=== PATIENT | female | born 1945 | race Caucasian/White ===

== ENCOUNTER → 2023-04-07 | Emergency (ER) | payer OTHER, MEDICARE ==
[~2023-04-07] MED LIST: CEFTRIAXONE 1000 MG/VIAL ONE; KETOROLAC 30 MG/ML INJ ONE; TAMSULOSIN 0.4 MG SR CAP ONE
[2023-04-07 22:15] LABS: Absolute Lymphocytes (CBC) 1.5 K/uL (0.7-4.9); Lymphocytes % 14.1 % (15.3-44.8); MCV 91.5 fL (80-100); Platelets 240 thou/uL (152-406); RBC Red Blood Cell Count 4.49 M/uL (3.86-4.86)
[2023-04-07 22:16] LABS: Calcium Oxalate Crystals- Ur Moderate /HPF (None Seen); Specific Gravity 1.022 (1.005-1.030); Urine Bacteria <20 /HPF (<20); Urine Bilirubin NEGATIVE (Negative); Urine Blood 2+ (Negative); Urine Clarity Extremely Turbid (Clear); Urine Color Light-Yellow (Yellow); Urine Glucose NEGATIVE (Negative); Urine Mucus Slight /HPF (None Seen); Urine Protein NEGATIVE (Negative); Urine RBC 21-50 /HPF (None Seen); Urine Urobilinogen Normal (Normal); Urine pH 5.5 (5.0-7.0)
[2023-04-07 22:32] LABS: Albumin 3.6 g/dL (3.4-5.0); Bilirubin Total 0.2 mg/dL (0.2-1.0); Potassium 3.9 mEq/L (3.5-5.1); Protein, Total 7.4 g/dL (6.4-8.2)
--- NOTE | 2023-04-07 23:10 | RAD REPORT ---
EXAM DESCRIPTION: CTAbdomen Pelvis W Contrast - 04/07/2023 11:00 pm CLINICAL HISTORY: Abd pain;Flank pain COMPARISON: No comparisons TECHNIQUE: CT of the abdomen and pelvis was performed with IV contrast. All CT scans are performed using dose optimization technique as appropriate and may include automated exposure control or mA/KV adjustment according to patient size. FINDINGS: Lower chest: No acute abnormality. Liver: High attenuation lesion in the right hepatic lobe measuring 13 millimeters is probably a flash fill hemangioma. Biliary: Cholelithiasis without CT evidence of acute cholecystitis. Stomach: No significant focal abnormality. Duodenum: No significant focal abnormality. Pancreas: No significant abnormality. Spleen: No significant abnormality. Adrenal: No suspicious lesions. Kidney/ureter: Mild left-sided hydroureteronephrosis secondary to a 3 mm stone at the left UVJ. Retroperitoneum: No retroperitoneal adenopathy. Vascular: No aneurysm. Bowel: No significant focal abnormality. No appendicitis. Peritoneum: No ascites or free air. Bladder: Grossly unremarkable. Reproductive: Small calcified uterine fibroid. Bones: No acute fracture. Multilevel degenerative changes are present in the spine. Other: n/a IMPRESSION: 1. Mild left-sided hydroureteronephrosis secondary to a 3 mm stone at the left UVJ. 2. Cholelithiasis without CT evidence acute cholecystitis. 3. High attenuation lesion in the right hepatic lobe likely a flash fill hemangioma. If the patient h as significant risk factors for hepatocellular carcinoma or personal history of malignancy, recommend hepatic protocol MRI or CT to confirm. If no significant risk factors, suggest nonemergent ultrasoun d to further evaluate.
--- NOTE | 2023-04-07 23:23 | EDPHYS ---
Physician Documentation [facility] Name: Jesi Mraroquin Age: 77 yrs Sex: Female : 1945 Arrival Date: 04/07/2023 Time: 21:13 Bed 14 Private MD: ED Physician Ilia Hawkins HPI: 04/07 23:57 This 77 yrs old Female presents to ER via Ambulatory with complaints of Possible Kidney sb4 Stone. 23:57 The patient complains of pain in the left low back. The pain radiates to the left lower sb4 quadrant. Onset: The symptoms/episode began/occurred just prior to arrival. Associated signs and symptoms: Pertinent positives: dysuria. Severity of pain: At its worst the pain was severe in the emergency department the pain has improved moderately. The patient has experienced a previous episode, approximately 6 years ago, and the symptoms today are exactly the same. The patient has been recently seen at an urgent care, just prior to arrival. sudden left sided flank pain right after eating dinner. thought she was constipated and took 2 ex lax. went to urgent care and was sent here for CT eval for kidney stone. Historical: - Allergies: 21:28 Cipro; cm10 21:28 Myocidin; cm10 - PMHx: 21:28 Kidney stone; Mitral Valve prolapse; Breast Cancer; cm10 - Immunization history:: Adult Immunizations unknown. - Social history:: Smoking status: Patient denies any tobacco usage or history of. ROS: 23:57 Constitutional: Negative for fever, chills, and weight loss, sb4 23:57 Back: Positive for flank pain, on the left, 23:57 : Positive for urinary symptoms, 23:57 All other systems are negative, Exam: 23:57 Constitutional: This is a well developed, well nourished patient who is awake, alert, sb4 and in no acute distress. Head/Face: Normocephalic, atraumatic. Eyes: Extra-ocular motions intact. Periorbital areas with no swelling, redness, or edema. ENT: Mucous membranes moist. Cardiovascular: Regular rate and rhythm with a normal S1 and S2. Respiratory: Lungs have equal breath sounds bilaterally, clear to auscultation and percussion. No rales, rhonchi or wheezes noted. No increased work of breathing, no retractions or nasal flaring. Abdomen/GI: Soft, non-tender, no distension. Skin: Warm, dry with normal turgor. Normal color with no rashes, no lesions, and no evidence of cellulitis. MS/ Extremity: Pulses equal, no cyanosis. Neurovascular intact. Full, normal range of motion. Neuro: Awake and alert, GCS 15, oriented to person, place, time, and situation. Motor strength 5/5 in all extremities. Sensory grossly intact. 23:57 Back: CVA tenderness, that is moderate, is noted on the left, Vital Signs: 21:26 BP 93 / 75; Pulse 90; Resp 16; Temp 97.7; Pulse Ox 100% on R/A; Weight 86.18 kg; Height cm10 5 ft. 5 in. ; Pain 8/10; 22:00 BP 136 / 84; Pulse 79; Resp 16; Pulse Ox 98% on R/A; pf1 23:00 BP 129 / 80; Pulse 80; Resp 16; Pulse Ox 98% on R/A; pf1 04/08 00:00 BP 136 / 92; Pulse 77; Resp 16; Pulse Ox 100% on R/A; pf1 04/07 21:26 Body Mass Index 31.62 (86.18 kg, 165.1 cm) cm10 04/07 21:26 Pain Scale: Adult cm10 MDM: 04/07 21:31 Patient medically screened. [facility] 23:57 Differential diagnosis: nephrolithiasis, pyelonephritis, UTI. Data reviewed: vital sb4 signs, nurses notes, lab test result(s), radiologic studies, and as a result, I will discharge patient. Historians other than the Patient: Spouse/Significant Other: . Counseling: I had a detailed discussion with the patient and/or guardian regarding the historical points, exam findings, and any diagnostic results supporting the discharge/admit diagnosis, lab results, radiology results, to return to the emergency department if symptoms worsen or persist or if there are any questions or concerns that arise at home. 04/07 21:52 Order name: CBC with Diff; Complete Time: 22:21 sb4 04/07 21:52 Order name: CMP; Complete Time: 22:33 sb4 04/07 21:52 Order name: Lipase; Complete Time: 22:33 sb4 04/07 21:52 Order name: Urinalysis w/ reflexes; Complete Time: 22:19 sb4 04/07 22:20 Order name: Urine Culture EDNH 04/07 21:52 Order name: CT Abd/Pelvis - IV Contrast Only; Complete Time: 23:11 sb4 04/07 21:52 Order name: IV Saline Lock; Complete Time: 22:06 sb4 04/07 21:52 Order name: Labs collected and sent; Complete Time: 22:06 sb4 Administered Medications: 23:40 Drug: Ketorolac IVP 30 mg IVP once Route: IVP; Site: right antecubital; pf1 04/08 00:00 Follow up: Response: No adverse reaction; Marked relief of symptoms; Pain is decreased; pf1 RASS: Alert and Calm (0) 04/07 23:40 Drug: Flomax PO 0.4 mg PO once Route: PO; pf1 04/08 00:00 Follow up: Response: No adverse reaction pf1 04/07 23:40 Drug: Rocephin IV 1 grams IV at calculated rate once; Given slow IV push per pharmacy pf1 instructions Route: IV; Rate: calculated rate; Site: right antecubital; 04/08 02:15 Follow up: Response: No adverse reaction; Marked relief of symptoms; IV Status: pf1 Completed infusion Disposition Summary: 04/07/23 23:22 Discharge Ordered Notes: Location: Home sb4 Problem: new sb4 Symptoms: have improved sb4 Condition: Stable sb4 Diagnosis - Calculus of kidney with calculus of ureter sb4 - UTI/ Urinary tract infection, site not specified sb4 Followup: sb4 - With: Emergency Department - When: As needed - Reason: Trouble breathing, Worsening of condition Discharge Instructions: - Discharge Summary Sheet sb4 - Kidney Stones sb4 - Urinary Tract Infection, Adult, [id number] sb4 Forms: - Medication Reconciliation Form sb4 - Thank You Letter sb4 - Antibiotic Education sb4 - Prescription Opioid Use sb4 - Patient Portal Instructions sb4 - Leadership Thank You Letter sb4 Prescriptions: - ketorolac 10 mg Oral tablet - take 1 tablet ORAL route every 4 to 6 hours for 3 days as needed for pain; do sb4 not exceed 4 doses per 24 hrs; 12 tablet; Refills: 0, Product Selection Permitted - tamsulosin 0.4 mg Oral capsule - take 1 capsule ORAL route every day at bedtime; 30 capsule; Refills: 0, Product sb4 Selection Permitted - cefpodoxime 100 mg Oral Tablet - take 1 tablet ORAL route every 12 hours for 10 days take with food; 20 tablet; sb4 Refills: 0, Product Selection Permitted Signatures: Dispatcher [employer] Ilia Coello MD MD cha Brown, Sophia, PA-C PA-C sb4 Velvet Leal RN RN pf1 Maegan Worley RN RN cm10
--- NOTE | 2023-04-07 23:23 | ER ---
Nurse's Notes [facility] Name: Jesi Marroquin Age: 77 yrs Sex: Female : 1945 Arrival Date: 04/07/2023 Time: 21:13 Bed 14 Private MD: Diagnosis: Calculus of kidney with calculus of ureter;UTI/ Urinary tract infection, site not specified Presentation: 04/07 21:26 Chief complaint: Patient states: Left flank pain that radiates to her LLQ onset tonight cm10 after eating dinner. Pt states that she has vomited twice and the pain has improved. Coronavirus screen: Vaccine status: Patient reports being unvaccinated. Client denies travel out of the [place] in the last 14 days. Ebola Screen: Patient denies travel to an Ebola-affected area in the 21 days before illness onset. No symptoms or risks identified at this time. Initial Sepsis Screen: Does the patient meet any 2 criteria? No. Patient's initial sepsis screen is negative. Does the patient have a suspected source of infection? No. Patient's initial sepsis screen is negative. Risk Assessment: Do you want to hurt yourself or someone else? Patient reports no desire to harm self or others. Onset of symptoms was April 07, 2023. 21:26 Method Of Arrival: Ambulatory cm10 21:26 Acuity: PATT 3 cm10 Historical: - Allergies: 21:28 Cipro; cm10 21:28 Myocidin; cm10 - PMHx: 21:28 Kidney stone; Mitral Valve prolapse; Breast Cancer; cm10 - Immunization history:: Adult Immunizations unknown. - Social history:: Smoking status: Patient denies any tobacco usage or history of. Screenin:09 [facility] ED Fall Risk Assessment (Adult) History of falling in the last 3 months, pf1 including since admission No falls in past 3 months (0 pts) Confusion or Disorientation No (0 pts) Intoxicated or Sedated No (0 pts) Impaired Gait No (0 pts) Mobility Assist Device Used No (0 pt) Altered Elimination No (0 pt) Score/Fall Risk Level 0 - 2 = Low Risk Oriented to surroundings, Maintained a safe environment, Educated pt \T\ family on fall prevention, incl call for assistance when getting out of bed, Assessed \T\ reinforced patient's understanding of fall precautions, Provided non-skid footwear, Hourly rounding (assess needs \T\ fall precautionary measures) done, Used ambulatory aids as needed (educated on \T\ assisted with), Used gait belt as appropriate. Abuse screen: Denies threats or abuse. Nutritional screening: No deficits noted. Tuberculosis screening: No symptoms or risk factors identified. Assessment: 21:40 General: Appears in no apparent distress. comfortable, well groomed, well developed, pf1 Behavior is calm, cooperative, appropriate for age, quiet. 21:40 Pain: Complains of pain in back and abdomen Pain currently is 3 out of 10 on a pain pf1 scale. Neuro: No deficits noted. Level of Consciousness is awake, alert, obeys commands, Oriented to person, place, time, situation. Cardiovascular: No deficits noted. Capillary refill < 3 seconds Patient's skin is warm and dry. Respiratory: No deficits noted. Airway is patent Respiratory effort is even, unlabored, Respiratory pattern is regular, symmetrical. GI: Abdomen is round non-distended, Bowel sounds present X 4 quads. Abd is soft and non tender X 4 quads. Reports upper abdominal pain, nausea, vomiting. : No deficits noted. No signs and/or symptoms were reported regarding the genitourinary system. Reports patient stated was treated for UTI approximately 3 weeks ago, just completed antibiotics 1 week ago Tuesday. EENT: No deficits noted. No signs and/or symptoms were reported regarding the EENT system. 22:30 Reassessment: Patient appears in no apparent distress at this time. Patient and/or pf1 family updated on plan of care and expected duration. Pain level reassessed. Patient is alert, oriented x 3, equal unlabored respirations, skin warm/dry/pink. 23:14 Reassessment: Patient appears in no apparent distress at this time. Patient and/or pf1 family updated on plan of care and expected duration. Pain level reassessed. Patient is alert, oriented x 3, equal unlabored respirations, skin warm/dry/pink. Vital Signs: 21:26 BP 93 / 75; Pulse 90; Resp 16; Temp 97.7; Pulse Ox 100% on R/A; Weight 86.18 kg; Height cm10 5 ft. 5 in. ; Pain 8/10; 22:00 BP 136 / 84; Pulse 79; Resp 16; Pulse Ox 98% on R/A; pf1 23:00 BP 129 / 80; Pulse 80; Resp 16; Pulse Ox 98% on R/A; pf1 04/08 00:00 BP 136 / 92; Pulse 77; Resp 16; Pulse Ox 100% on R/A; pf1 04/07 21:26 Body Mass Index 31.62 (86.18 kg, 165.1 cm) cm10 04/07 21:26 Pain Scale: Adult cm10 ED Course: 04/07 21:15 Patient arrived in ED. mr 21:16 Anastasia Medina PA-C is PHCP. sb4 21:16 Ilia Hawkins MD is Attending Physician. sb4 21:28 Triage completed. cm10 21:28 Arm band placed on Patient placed in an exam room, on a stretcher. cm10 21:28 Patient has correct armband on for positive identification. Placed in gown. Bed in low pf1 position. Call light in reach. Side rails up X 1. 21:57 Radiology exam delayed due to lab results not completed at this time. (BUN/Creatinine) eh4 IV insertion attempt and/or patient not having appropriate IV at this time. 22:00 Inserted saline lock: 22 gauge in right antecubital area, using aseptic technique. pf1 Blood collected. 22:06 Velvet Leal, RN is Primary Nurse. pf1 22:06 CBC with Diff Sent. pf1 22:06 CMP Sent. pf1 22:06 Lipase Sent. pf1 22:06 Urinalysis w/ reflexes Sent. pf1 23:01 CT Abd/Pelvis - IV Contrast Only In Process Unspecified. EDMS 23:59 Provided Education on: prescriptions. pf1 23:59 No provider procedures requiring assistance completed. IV discontinued, intact, pf1 bleeding controlled, No redness/swelling at site. Pressure dressing applied. Administered Medications: 23:40 Drug: Ketorolac IVP 30 mg IVP once Route: IVP; Site: right antecubital; pf1 04/08 00:00 Follow up: Response: No adverse reaction; Marked relief of symptoms; Pain is decreased; pf1 RASS: Alert and Calm (0) 04/07 23:40 Drug: Flomax PO 0.4 mg PO once Route: PO; pf1 04/08 00:00 Follow up: Response: No adverse reaction pf1 04/07 23:40 Drug: Rocephin IV 1 grams IV at calculated rate once; Given slow IV push per pharmacy pf1 instructions Route: IV; Rate: calculated rate; Site: right antecubital; 04/08 02:15 Follow up: Response: No adverse reaction; Marked relief of symptoms; IV Status: pf1 Completed infusion Medication: 04/07 23:59 VIS not applicable for this client. pf1 Outcome: 23:22 Discharge ordered by . [email or web address] 23:59 Discharged to home ambulatory, with family, pf1 23:59 Condition: improved 23:59 Discharge instructions given to patient, family, Instructed on discharge instructions, follow up and referral plans. Demonstrated understanding of instructions, follow-up care, medications, Prescriptions given X 3, 04/08 00:01 Patient left the ED. pf1 Signatures: Dispatcher [employer] EDMS China Henning, Reg Reg , [place] eh4 Anastasia Medina, KIKI PARaul sb4 Velvet Leal RN RN pf1 Maegan Worley RN RN cm10
[2023-04-08 05:54] VITALS: TEMP 97.7
[2023-04-08 06:00] VITALS: O2SAT 98
[2023-04-08 06:06] VITALS: BP 129/80
== END ==
LOC: ER 21:13
DX: N20.2 Calculus of kidney with calculus of ureter (principal); N39.0 Urinary tract infection, site not specified; Z87.442 Personal history of urinary calculi; Z88.1 Allergy status to other antibiotic agents
CPT/HCPCS: 96365; 87088; 85025; 81001; 87086; 36415; 83690; 80053; 74177; 96375; 99284; 96366; Q9967; J0696